=== PATIENT | female | born 1970 | race Two or more races ===

== ENCOUNTER → 2024-09-01 | Outpatient (CLI) | payer MEDICARE, MEDICAID, SELFPAY ==
--- NOTE | 2024-09-01 15:32 | XR_ITS ---
Examination: PA lateral chest 2 views TECHNIQUE: Upright PA lateral chest 2 views Date and time: September 01, 2024 1541 hours INDICATIONS: Positive PPD. FINDINGS: Normal heart size. No pneumonia. The osseous structures are demineralized IMPRESSION:: No active disease. No radiographic findings of tuberculosis
== END | disposition home or self-care (01) ==
PROVIDERS: PCP Registered Nurse Community Health; Referring Provider Nurse Practitioner Family; Visit Provider Nurse Practitioner Family
DX: R76.11 Nonspecific reaction to tuberculin skin test without active tuberculosis (principal)
CPT/HCPCS: 71046

== ENCOUNTER 2024-09-17 18:38 | Emergency (ER) | payer MEDICAID, SELFPAY ==
[2024-09-17] VITALS (9 sets, daily range): BP systolic 124–171; BP diastolic 80–105; PULSE 68–85; RESP 16–18; TEMP 36.6–37.1; O2SAT 95–100; BMI 31.2
--- NOTE | 2024-09-17 19:05 | PD.EDABDPN ---
ED Abdominal Pain RME/HPI General Chief Complaint: Abdominal Pain Stated complaint: ABDOMINAL PAIN Time seen by provider: 09/17/24 19:02 Arrival date/time: 09/17/24 18:38 Limitations: no limitations RME / HPI RME / HPI narrative: Dr. Wick's Main ED Evaluation: 54yo female with a history of DM, HTN, HLD presents to the ED for a chief complaint of sharp chest pain that radiates to her abdomen x today. She subsequently complains of left leg pain. She reports associated nausea. She denies any vomiting, fever, chills, cough, or any other associated symptoms. She denies any tobacco use. She denies any history of similar symptoms. Related Data Home Medications ?Medication ?Instructions ?Recorded ?Confirmed levothyroxine 75 mcg tablet 75 mcg PO DAILY ##0 04/11/12 07/19/20 (Levoxyl) metformin 500 mg tablet,extended 1,000 mg PO BID ##0 04/11/12 07/19/20 release 24 hr (Glucophage XR) mirtazapine 30 mg tablet 30 mg PO HS ##0 04/11/12 07/19/20 simvastatin 40 mg tablet 40 mg PO QPM ##0 04/11/12 07/19/20 canagliflozin 300 mg tablet 300 mg PO QDAY ##0 07/26/16 07/19/20 (Invokana) alprazolam 1 mg tablet 1 mg PO BID 07/19/20 07/19/20 conj estrogen-medroxyprogesterone 1 tab PO QDAY 07/19/20 07/19/20 0.625 mg-2.5 mg tablet (Prempro) gabapentin 100 mg capsule 200 mg PO HS 07/19/20 07/19/20 metoprolol succinate 25 mg 25 mg PO BID 07/19/20 07/19/20 tablet,extended release 24 hr paliperidone 9 mg tablet,extended 9 mg PO BID 07/19/20 07/19/20 release 24 hr (Invega) psyllium seed (with dextrose) oral See Rx Instructions .Route .COMPLEX 07/19/20 07/19/20 powder venlafaxine 150 mg 150 mg PO QDAY 07/19/20 07/19/20 capsule,extended release 24 hr vitamin B complex 2 cap PO QDAY 07/19/20 07/19/20 Previous Rx's ?Medication ?Instructions ?Recorded loratadine 10 mg tablet 10 mg PO QDAY PRN ALLERGY #0 tabs 07/24/20 Allergies Allergy/AdvReac Type Severity Reaction Status Date / Time aspirin Allergy Mild Itching Verified 11/12/20 14:52 Review of Systems Review of Systems Systems Reviewed: All systems reviewed, normal except as documented Past Medical History Past Medical History NEUROLOGIC: Negative Neurological Disorders or Seizures CARDIAC: Positive Cardiac Disorders, Cardiac Arrhythmia, Hypercholesterolemia and Hypertension; Negative Congestive Heart Failure RESPIRATORY: Negative Chronic Obstructive Pulmonary Disease (COPD) GASTROINTESTINAL: Positive Gastrointestinal Disorders, Irritable Bowel and Gastroesophageal Reflux Disease GENITOURINARY: Negative Genitourinary Disorders or Renal Disease MUSCULOSKELETAL: Positive Musculoskeletal Disorders and Degenerative Disk Disease ENDOCRINE: Positive Endocrine Disorders, Diabetes Mellitus Type 2 and Hypothyroidism; Negative Diabetes Mellitus Type 1 HEMATOLOGIC: Positive Anemia PSYCHO/SOCIAL: Positive Psychiatric Problems, Schizophrenia, Bipolar Disorder, Depression, Anxiety and Behavior Problems OTHER HISTORY: Positive Hospitalization, Developmental Delay and Falls; Negative Blood Transfusions, Anesthesia Reactions, MRSA, VRSA, Vancomycin-Resistant Enterococci or Cancer Surgical History SURGICAL: Negative Cardiac Surgery or Vasectomy Social History SMOKING STATUS: Unknown if ever smoked ED Exam General Limitations: Present no limitations General appearance: Present alert and in no apparent distress Head Head exam: Present atraumatic Eye Eye exam: Present normal appearance, PERRL and EOMI ENT ENT exam: Present normal exam, normal oropharynx and mucous membranes moist Neck Neck exam: Present normal inspection, full ROM and trachea midline Chest Chest inspection: Present normal inspection and symmetric chest wall rise Respiratory Respiratory exam: Present normal lung sounds bilaterally; Absent accessory muscle use Cardiovascular Cardiovascular exam: Present regular rate, normal rhythm and normal heart sounds Abdominal Exam Abdominal exam: Present soft and normal bowel sounds Extremities Exam Extremities exam: Present normal inspection, full ROM and other (no calf tenderness); Absent pedal edema Back Exam Back exam: Present normal inspection and full ROM Neurological Exam Neurological exam: Present alert, oriented X3 and CN II-XII intact Psychiatric Psychiatric exam: Present normal affect and normal mood Skin Skin exam: Present warm, dry, intact and normal color Course Quality Measures none Orders Category Date Time Status EKG (ED ONLY) *Do not use* NOW Care 09/17/24 20:07 Completed Insert IV NOW Care 09/17/24 20:10 Completed EKG (ED Only) Stat Exams 09/17/24 20:07 Draft US venous doppler LE LT Stat Exams 09/17/24 20:23 Completed XR chest 1V portable Stat Exams 09/17/24 20:10 Completed CBC Stat Lab 09/17/24 19:20 Completed CMP [Comprehensive Metabolic Panel] Stat Lab 09/17/24 19:20 Results D-Dimer Stat Lab 09/17/24 19:20 Completed Lipase Stat Lab 09/17/24 19:20 Results Magnesium Stat Lab 09/17/24 19:20 Results Partial Thromboplastin Time Stat Lab 09/17/24 19:20 Completed Prothrombin Time with INR Stat Lab 09/17/24 19:20 Completed Troponin I Stat Lab 09/17/24 19:20 Results Urinalysis, C/S if Indicated Stat Lab 09/17/24 19:34 Completed Famotidine Inj [Pepcid Inj] Med 09/17/24 20:07 Discontinued 20 mg IVP X1 ONE Ondansetron Inj [Zofran Inj] Med 09/17/24 20:07 Discontinued 4 mg IVP X1 ONE Sodium Chloride 0.9% 1000 ml [Ns] 1,000 ml Med 09/17/24 20:07 Discontinued IV 999 mls/hr Reevaluation(s) Reevaluation #1: Patient feels significantly better and is stable to be discharged home. Time: 23:47 Vital Signs Vital signs: Vital Signs Temperature 97.9 F 09/17/24 18:50 Pulse Rate 77 09/17/24 18:50 Respiratory Rate 17 09/17/24 18:50 Blood Pressure 162/94 H 09/17/24 18:50 Pulse Oximetry (%) 100 09/17/24 18:50 Oxygen Delivery Method Room Air 09/17/24 18:50 Abdominal Pain MDM MDM Narrative MDM Narrative:: Scribe Attestation: 09/17/24 Carye Sidhu am scribing for and in the presence of Dr. Wick. Patient data External records reviewed:: [facility] previous records (Per chart review, patient was seen here on 02/28/22 for COVID.) Clinical information provided by:: patient Social determinants that could affect healthcare access:: none Patient has the following chronic illnesses:: DM, HTN, HLD How is presenting disease/condition affected by chronic disease/condition?: uneffected by Evaluation data The following diagnostics were reviewed and interpreted by me:: lab results, radiology exam(s) and EKG tracing(s) Lab and/or radiology exams considered but not ordered:: none Interpretation Summary: WBC 12, CMP normal, Magnesium normal, Troponin normal, D-Dimer negative, UA unremarkable. EKG done at 2036, NSR, rate of 73, normal intervals, normal axis, no acute ST or T-wave changes, according to my interpretation. [place] [facility] Report Signed Patient: KALYAN GONZALEZ [facility]. Record#: [id number] Birthdate: 1970 Age/Sex: 54 / F Location: [facility] Attending Dr: Ordering Physician: Kalyan Devi MD Date of Service: 09/17/24 Procedure(s): XR chest 1V portable Accession Number(s): [id number] cc: Medina Anne; Russ Main MD; Kalyan Devi MD~ Examination: AP chest single view Technique one AP portable upright chest single view Date and time: September 17, 2024 2017 hours INDICATIONS: Stroke alert, chest pain and shortness of breath today. FINDINGS: Normal heart size. No aspiration pneumonia. No pulmonary edema. Moderate osteopenia IMPRESSION: No aspiration pneumonia. Dictated By: Russ Main MD Signed By: <Electronically signed by Russ Main MD in OV> 09/17/[id number] [place] [facility] Report Signed Patient: KALYAN GONZALEZ [facility]. Record#: [id number] Birthdate: 1970 Age/Sex: 54 / F Location: [facility] Attending Dr: Ordering Physician: Kalyan Devi MD Date of Service: 09/17/24 Procedure(s): US venous doppler LE LT Accession Number(s): [id number] cc: Medina Anne; Russ Main MD; Kalyan Devi MD~ Examination: Duplex scan of the lower extremity, unilateral left Date and time of exam: September 17, 2024 2041 hours INDICATIONS: Left leg pain today Technique: Duplex scan of the extremity veins using B-mode/grayscale imaging and Doppler spectral analysis and color flow Attention is directed to internal echogenicity, compression and augmentation involving these veins, color flow assessment, spectral analysis Findings: Major deep venous structures in the extremity demonstrate normal course and caliber. There is no evidence of deep vein thrombosis. Normal color flow and spectral analysis Impression: Negative for DVT.. Dictated By: Russ Main MD Signed By: <Electronically signed by Russ Main MD in OV> 09/17/24 2119 Medications / Prescriptions Medications or Prescriptions considered but not ordered:: none Medication administrations:: Medication Administration History Discontinued Medications Famotidine (Famotidine Inj 10 Mg/Ml Vial 2 Ml) 20 mg IVP X1 ONE Stop: 09/17/24 20:08 Last Admin: 09/17/24 20:27 Dose: 20 mg Documented By: DAISY Sodium Chloride (Ns) 1,000 mls @ 999 mls/hr IV .Q1H1M ONE Stop: 09/17/24 21:07 Last Infusion: 09/17/24 21:29 Dose: Infused Documented By: Admin: 09/17/24 20:28 Dose: 999 mls/hr Documented By: DAISY Ondansetron HCl (Ondansetron Inj 2 Mg/Ml Inj 2 Ml) 4 mg IVP X1 ONE; Protocol Stop: 09/17/24 20:08 Last Admin: 09/17/24 20:27 Dose: 4 mg Documented By: DAISY see above Consultations Consultation(s) initiated? (list below): No Diagnosis Differential diagnosis abdominal pain: constipation and other (gastritis, GERD, DVT, STEMI, NSTEMI) Most likely diagnosis given after review of the tests above:: see clinical impression below Admission Indicated Admission indicated?: not indicated Admission Request Was there a request for admission?: No Disposition Plan Disposition Plan: Discharge Discharge Attestation Discharge Attestation: The patient and all family members were given an opportunity to ask questions and understood the discharge instructions. Discharge instructions specifically effects, indications for sooner follow up or return to the emergency department, and the expected course of current diagnosis. Patient condition: Stable Discharge Plan Plan Patient Disposition: HOME (Self Care) Patient condition on transfer: Stable Prescriptions/Referrals Prescriptions/Med Rec: No Action simvastatin 40 MG tablet 40 mg PO QPM Qty: 0 levothyroxine [Levoxyl] 75 MCG tablet 75 mcg PO DAILY Qty: 0 mirtazapine 30 mg Tablet 30 mg PO HS Qty: 0 metformin [Glucophage XR] 500 MG tablet extended release 24 hr 1,000 mg PO BID Qty: 0 Invokana 300 MG tablet 300 mg PO QDAY Qty: 0 alprazolam 1 mg tablet 1 mg PO BID venlafaxine 150 mg capsule,extended release 24hr 150 mg PO QDAY gabapentin 100 mg Capsule 200 mg PO HS metoprolol succinate 25 mg Tablet Extended Release 24 Hr 25 mg PO BID Prempro 0.625-2.5 mg tablet 1 tab PO QDAY vitamin B complex Capsule 2 cap PO QDAY psyllium seed (with dextrose) Powder See Rx Instructions .ROUTE .COMPLEX Rx Instructions: as directed [place] physician. paliperidone [Invega] 9 mg tablet extended release 24hr 9 mg PO BID loratadine 10 mg Tablet 10 mg PO QDAY PRN (Reason: ALLERGY) Qty: 0 0RF Referrals: Medina Anne FNP [Primary Care Provider] - In 1 week Problem List Clinical Impression: Atypical chest pain Patient/Caregiver Discharge Instructions Education Materials: ED Chest Pain, Uncertain Cause Additional Instructions: Follow-up with your primary care in the next 3-5 days. Return to the ED if you have any vomiting, worsening abdominal pain, worsening chest pain, or any other concerns. Print Language: Thai Stand Alone Forms: Lily Award Info., Patient Portal Info Letter
[2024-09-17 19:28] LABS: Basophils # (Auto) 0.0 Thou/mm3 (0.0-0.2); Basophils % (Auto) 0 % (0-2.5); Eosinophils # (Auto) 0.1 Thou/mm3 (0.0-0.5); Eosinophils % (Auto) 1 % (0-10); Hematocrit 40.6 % (36.0-46.0); Hemoglobin 12.9 g/dL (12.0-16.0); Immature Granulocytes Auto 0.07 Thou/mm3 (0.00-0.00); Lymphocytes # (Auto) 2.9 Thou/mm3 (1.0-4.8); Lymphocytes % (Auto) 24 % (10-50); Mean Corpuscular HGB Conc 31.8 g/dl (31.0-37.0); Mean Corpuscular Hemoglobin 29.7 pg (25.0-35.0); Mean Corpuscular Volume 94 fL (80-100); Monocytes # (Auto) 0.8 Thou/mm3 (0.0-0.8); Monocytes % (Auto) 7 % (0-12); Neutrophils # (Auto) 8.1 Thou/mm3 (1.8-7.7); Neutrophils % (Auto) 67 % (37-80); Nucleated Red Blood Cell # 0.00 Thou/mm3 (0.00-0.00); Nucleated Red Blood Cell % 0 /100 WBC (0); Platelet Count 201 Thou/mm3 (140-440); RDW Standard Deviation 46.8 fL (36.4-46.3); Red Blood Count 4.34 Miln/mm3 (4.00-5.20); White Blood Count 12.0 Thou/mm3 (3.6-11.0)
[2024-09-17 19:44] LABS: Collection Type, Urine Clean Catch
[2024-09-17 19:49] LABS: Alanine Aminotransferase 14 U/L (10-49); Albumin, Serum 5.0 gm/dL (3.5-5.0); Albumin/Globulin Ratio 2.1 (1.2-2.2); Alkaline Phosphatase 72 U/L (46-116); Anion Gap 10 (7-16); Aspartate Amino Transferase < 8 U/L (0-34); BUN/Creatinine Ratio 14 Ratio (12-20); Bilirubin,Total 0.3 mg/dL (0.3-1.2); Blood Urea Nitrogen 10 mg/dL (9-23); Calcium 10.2 mg/dL (8.3-10.6); Calcium (Corrected) 10.2 mg/dL (8.5-10.1); Carbon Dioxide 25.9 mMol/L (20.0-31.0); Chloride 98 mMol/L (98-107); Creatinine (Component) 0.7 mg/dL (0.6-1.3); Estimated Creatinine Clearance 79.8 mL/min (>60); Globulin 2.4 gm/dL (2.3-3.5); Glucose 138 mg/dL (74-106); Osmolality,Calculated 269 (275-295); Potassium 3.7 mMol/L (3.4-5.1); Sodium 134 mMol/L (136-145); Total Protein 7.4 gm/dL (5.7-8.2); eGFR > 60 See Note
[2024-09-17 19:51] LABS: Bacteria,Urine Rare; Bilirubin,Urine Negative (Negative); Blood,Urine Negative (Negative); Clarity,Urine Clear (Clear/Hazy); Color,Urine Colorless (Lt Yel-Yel); Culture Indicated,Urine Not Indicated; Glucose, Urine 4+ (Negative); Ketones,Urine Negative (Negative); Leukocyte Esterase,Urine Positive (Negative); Nitrite,Urine Negative (Negative); PH,Urine 7.0 (5.0-7.0); Protein,Urine Negative (Neg - Trace); RBC,Urine < 1 /hpf (0-3); Specific Gravity,Urine 1.002 (1.001-1.035); Squamous Epithelial Cell,Urine < 1 /hpf (0-5); Urobilinogen,Urine Negative mg/dL (0.0-1.0); WBC,Urine 6 /hpf (0-5)
--- NOTE | 2024-09-17 19:57 | PC.NURSE ---
pt has career services manager at bedside. pt has been up x2 since arrival to void. pt drank more than usual water AGRONOMY ADVISOR trying to lower her BS..
--- NOTE | 2024-09-17 20:07 | EKG_ITS ---
[facility] Test Date: 2024-09-17 Pat Name: SILVIA GONZALEZ Department: Room: - Gender: Female [employer]er: : 1970 Requested By: Silvia Degroot Order Number: [id number] Reading MD: Silvia Degroot Measurements Intervals [place] Rate: 73 P: 45 DE: 137 QRS: 73 QRSD: 90 T: 57 QT: 369 QTc: 407 Interpretive Statements SINUS RHYTHM Compared to ECG 10/10/2017 18:03:13 No significant changes /store/S0/[id number]/ecg/[id number].pdf
--- NOTE | 2024-09-17 20:10 | XR_ITS ---
Examination: AP chest single view Technique one AP portable upright chest single view Date and time: September 17, 2024 2017 hours INDICATIONS: Stroke alert, chest pain and shortness of breath today. FINDINGS: Normal heart size. No aspiration pneumonia. No pulmonary edema. Moderate osteopenia IMPRESSION: No aspiration pneumonia.
--- NOTE | 2024-09-17 20:23 | XR_ITS ---
Examination: Duplex scan of the lower extremity, unilateral left Date and time of exam: September 17, 2024 2041 hours INDICATIONS: Left leg pain today Technique: Duplex scan of the extremity veins using B-mode/grayscale imaging and Doppler spectral analysis and color flow Attention is directed to internal echogenicity, compression and augmentation involving these veins, color flow assessment, spectral analysis Findings: Major deep venous structures in the extremity demonstrate normal course and caliber. There is no evidence of deep vein thrombosis. Normal color flow and spectral analysis Impression: Negative for DVT..
[2024-09-17 20:26] LABS: INR 1.0 (0.9-1.3); Partial Thromboplastin Time 26.6 Seconds (22.0-36.0); Prothrombin Time 10.9 Seconds (9.0-12.2)
[2024-09-17] MEDS: ONDANSETRON INJ 2 MG/ML INJ 2 ML 4 MG IVP (20:27)
[2024-09-17] MEDS: FAMOTIDINE INJ 10 MG/ML VIAL 2 ML 20 MG IVP (20:27)
[2024-09-17] MEDS: SODIUM CHLORIDE 0.9% 1000 ML 1,000 ML 999 ML IV (20:28)
[2024-09-17 20:34] LABS: Magnesium 2.0 mg/dL (1.6-2.6); Troponin I < 0.020 ng/mL (0.0-0.045)
[2024-09-17 22:06] LABS: D-Dimer < 250 ng/mL (<600)
[2024-09-18] VITALS: BP 110/66; PULSE 73; RESP 16; O2SAT 99
[2024-09-18 00:10] VITALS: BP 138/56; PULSE 80; RESP 16; TEMP 36.6; O2SAT 96
[2024-09-18 01:33] LABS: Lipase 32 U/L (12-53)
== END 2024-09-18 00:11 | disposition home or self-care (01) ==
PROVIDERS: Emergency Provider Emergency Medicine; PCP Registered Nurse Community Health
DX: R07.89 Other chest pain (principal); M79.605 Pain in left leg; R06.02 Shortness of breath; I10 Essential (primary) hypertension; E78.00 Pure hypercholesterolemia, unspecified
CPT/HCPCS: 36415; 71045; 80053; 80307; 81001; 83690; 83735; 84484; 85025; 85379; 85610; 85730; 93005; 93971; 96361; 96374; 96375; 99283; J2405; J3490; J7030

== ENCOUNTER 2024-12-30 16:05 | Emergency (ER) | payer MEDICARE, MEDICAID, SELFPAY ==
[2024-12-30 16:06] VITALS: BMI 27.8
[2024-12-30 16:18] VITALS: BP 130/85; PULSE 84; RESP 20; TEMP 36.6; O2SAT 97
--- NOTE | 2024-12-30 16:29 | PD.EDLOWEX ---
Lower Extremity Injury RME/HPI General Chief Complaint: Extremity Injury, Lower Stated Complaint: R LEG SWELLING S/P FALL X5 DAYS Time Seen by Provider: 12/30/24 16:28 Arrival date/time: 12/30/24 16:05 RME / HPI RME / HPI Narrative: 54-year-old female with a past medical history of hypertension, high cholesterol, left knee fracture remotely presents to the ER complaining of right leg pain after tripping on her shoe when she was not using her walker (which she typically uses most of the time due to her chronic balance issues) 5 days ago and subsequently landed on her right knee and lower leg was referred to the ER for an ultrasound to rule out a blood clot. Denies fever, numbness, tingling, weakness. Patient endorses that she has taken ibuprofen without an allergic reaction in the past. Related Data Home Medications ?Medication ?Instructions ?Recorded ?Confirmed levothyroxine 75 mcg tablet 75 mcg PO DAILY ##0 04/11/12 07/19/20 (Levoxyl) metformin 500 mg tablet,extended 1,000 mg PO BID ##0 04/11/12 07/19/20 release 24 hr (Glucophage XR) mirtazapine 30 mg tablet 30 mg PO HS ##0 04/11/12 07/19/20 simvastatin 40 mg tablet 40 mg PO QPM ##0 04/11/12 07/19/20 canagliflozin 300 mg tablet 300 mg PO QDAY ##0 07/26/16 07/19/20 (Invokana) alprazolam 1 mg tablet 1 mg PO BID 07/19/20 07/19/20 conj estrogen-medroxyprogesterone 1 tab PO QDAY 07/19/20 07/19/20 0.625 mg-2.5 mg tablet (Prempro) gabapentin 100 mg capsule 200 mg PO HS 07/19/20 07/19/20 metoprolol succinate 25 mg 25 mg PO BID 07/19/20 07/19/20 tablet,extended release 24 hr paliperidone 9 mg tablet,extended 9 mg PO BID 07/19/20 07/19/20 release 24 hr (Invega) psyllium seed (with dextrose) oral See Rx Instructions .Route .COMPLEX 07/19/20 07/19/20 powder venlafaxine 150 mg 150 mg PO QDAY 07/19/20 07/19/20 capsule,extended release 24 hr vitamin B complex 2 cap PO QDAY 07/19/20 07/19/20 Previous Rx's ?Medication ?Instructions ?Recorded loratadine 10 mg tablet 10 mg PO QDAY PRN ALLERGY #0 tabs 07/24/20 Allergies Allergy/AdvReac Type Severity Reaction Status Date / Time aspirin Allergy Mild Itching Verified 12/30/24 16:09 ED Exam Narrative Physical exam: Constitutional: Vital Signs Reviewed. Well appearing. No acute distress. Not toxic appearing. Head: Normocephalic, atraumatic. Eyes: Conjunctiva clear. ENT: Mucous membranes moist. Neck: Trachea midline. Normal range of motion. No nuchal rigidity. Respiratory: Normal effort. No respiratory distress or accessory muscle use. Neuro: Alert and oriented. Speech normal. No focal gross motor or sensory deficits observed. Skin: Warm, dry, normal color. Psych: Pleasant. Normal affect. Cooperative. Extremity: Left lower extremity with a well-healed scar noted to the left knee as well as nodular deformities which are chronic in nature for the patient Positive tenderness to palpation, edema, ecchymosis to right lower leg just distal to the knee as well as to the medial joint line and proximal calf. Positive mild limited range of motion and strength 4+ out of 5 secondary to pain range of motion is from 20-100 degrees which is painless compartments remain soft. No erythema, heat, pallor, poikilothermia. Dorsalis pedis pulse 2+ regular rate and rhythm for right lower leg. Able to dorsiflex and plantar flex ankle without difficulty and without worsening pain. Course Quality Measures none Orders Category Date Time Status Apply knee immobilizer NOW Care 12/30/24 19:11 Active US venous duplex LE RT Stat Exams 12/30/24 16:35 Completed XR knee RT 3V Stat Exams 12/30/24 16:35 Completed XR tibia fibula RT 2V Stat Exams 12/30/24 16:35 Completed Ketorolac Inj [Toradol Inj] Med 12/30/24 16:36 Discontinued 15 mg IM X1 ONE Vital Signs Vital signs: Vital Signs Temperature 97.9 F 12/30/24 16:18 Pulse Rate 84 12/30/24 16:18 Respiratory Rate 20 12/30/24 16:18 Blood Pressure 130/85 H 12/30/24 16:18 Pulse Oximetry (%) 97 12/30/24 16:18 Oxygen Delivery Method Room Air 12/30/24 16:18 Extremity Injury, Lower MDM Narrative MDM Narrative:: MDM: This patient has been diagnosed with a knee effusion with concern for internal knee derangements i.e. strain vs sprain vs occult f/x or dislocation that does not have neurovascular compromise. X-ray without gross fracture or dislocation. Ultrasound without DVT. There is no infectious e/o. Patient instructions include the recommendation to decrease activities, be weight bearing as tolerated, and to ice and elevate the injured limb. Plan for knee immobilizer, continue using walker as previously. The patient is instructed to return if there are signs of a compartment syndrome or vascular compromise, including increased pain or numbness. Extremity remains DNVI with soft compartments at time of discharge. Patient data External records reviewed:: None Clinical information provided by:: patient and guardian Social determinants that could affect healthcare access:: none Patient has the following chronic illnesses:: As noted How is presenting disease/condition affected by chronic disease/condition?: uneffected by Evaluation data The following diagnostics were reviewed and interpreted by me:: other (specify) Lab and/or radiology exams considered but not ordered:: Additional Labs and radiology considered, but not ordered as they were not clinically indicated at this time. Interpretation Summary: Knee effusion Medications / Prescriptions Medications or Prescriptions considered but not ordered:: I considered prescription management (both outpatient prescriptions AND drug treatment in the ER) and decided that this was necessary and was prescribed as charted. Medication administrations:: Medication Administration History Discontinued Medications Ketorolac Tromethamine (Ketorolac Inj 30 Mg/Ml Vial) 15 mg IM X1 ONE Stop: 12/30/24 16:37 Last Admin: 12/30/24 17:37 Dose: 15 mg Documented By: GM As noted Consultations Consultation(s) initiated? (list below): No Diagnosis Extremity Injury, Lower Differential Diagnosis: acute internal derangement of knee Most likely diagnosis given after review of the tests above:: Internal derangement of knee Admission Indicated Admission indicated?: not indicated Explain why admission is indicated or not indicated:: Escalation of care including admission/observation considered but I decided to discharge because based on the overall clinical presentation, and after consideration of the patient's course in the emergency department and plan for outpatient management, I believe that neither further observation nor inpatient care is required at this time. Admission Request Was there a request for admission?: No Disposition Plan Disposition Plan: Discharge Discharge Attestation Discharge Attestation: The patient and all family members were given an opportunity to ask questions and understood the discharge instructions. Discharge instructions specifically effects, indications for sooner follow up or return to the emergency department, and the expected course of current diagnosis. Patient condition: Stable Discharge Plan Plan Patient Disposition: HOME (Self Care) Patient condition on transfer: Stable Prescriptions/Referrals Prescriptions/Med Rec: No Action simvastatin 40 MG tablet 40 mg PO QPM Qty: 0 levothyroxine [Levoxyl] 75 MCG tablet 75 mcg PO DAILY Qty: 0 mirtazapine 30 mg Tablet 30 mg PO HS Qty: 0 metformin [Glucophage XR] 500 MG tablet extended release 24 hr 1,000 mg PO BID Qty: 0 Invokana 300 MG tablet 300 mg PO QDAY Qty: 0 alprazolam 1 mg tablet 1 mg PO BID venlafaxine 150 mg capsule,extended release 24hr 150 mg PO QDAY gabapentin 100 mg Capsule 200 mg PO HS metoprolol succinate 25 mg Tablet Extended Release 24 Hr 25 mg PO BID Prempro 0.625-2.5 mg tablet 1 tab PO QDAY vitamin B complex Capsule 2 cap PO QDAY psyllium seed (with dextrose) Powder See Rx Instructions .ROUTE .COMPLEX Rx Instructions: as directed [place] physician. paliperidone [Invega] 9 mg tablet extended release 24hr 9 mg PO BID loratadine 10 mg Tablet 10 mg PO QDAY PRN (Reason: ALLERGY) Qty: 0 0RF Referrals: Medina Anne FNP [Primary Care Provider] - In 1 week Problem List Clinical Impression: Acute internal derangement of knee Patient/Caregiver Discharge Instructions Discharge Activity: walk with walker only and activity as tolerated Education Materials: How Your Knee Works Additional Instructions: Follow up with your primary medical doctor and an orthopedic doctor within 24 hours. Return to the Emergency Room immediately for any new, worsening, continuing symptoms or any concerns at all. Return to the Emergency Room within 24 hours if you are unable to follow up with your primary medical doctor and an orthopedic doctor within 24 hours. Print Language: Paraguayan Stand Alone Forms: Lily Award Info., Patient Portal Info Letter YUMIKO/ANAMARIA Supervising Physician YUMIKO/ANAMARIA Supervising Physician: Dr. Reyes
--- NOTE | 2024-12-30 16:35 | XR_ITS ---
Examination: Tibia-Fibula, right, 2 views Technique: Tibia-fibula AP lateral 2 views Date and time of exam: December 30, 2024, 1642 hours INDICATIONS: Patient fell today with injury to the lower leg, lower leg pain. FINDINGS: No acute fracture No dislocation. No foreign body. Significant plantar posterior bony calcaneal spurs IMPRESSION: No acute fracture Repeat the study short-term as clinically warranted
--- NOTE | 2024-12-30 16:35 | XR_ITS ---
Examination: Knee, right, 3 views Technique: Knee AP, lateral, oblique 3 views Date and time of exam: December 30, 2024, 1646 hours INDICATIONS: Patient fell today with into the leg, leg pain FINDINGS: No acute fracture Moderate knee effusion No cortical bone destruction IMPRESSION: No acute fracture
--- NOTE | 2024-12-30 16:35 | XR_ITS ---
Examination: Duplex scan of the lower extremity, unilateral right complete Date and time of exam: December 30, 2024, 1743 hours INDICATIONS: Right leg swelling and pain beginning 5 days ago Technique: Duplex scan of the extremity veins using B-mode/grayscale imaging and Doppler spectral analysis and color flow Attention is directed to internal echogenicity, compression and augmentation involving these veins, color flow assessment, spectral analysis Findings: Major deep venous structures in the extremity demonstrate normal course and caliber. There is no evidence of deep vein thrombosis. Normal color flow and spectral analysis Impression: Negative for DVT..
[2024-12-30] MEDS: KETOROLAC INJ 30 MG/ML VIAL 15 MG IM (17:37)
== END 2024-12-30 21:34 | disposition home or self-care (01) ==
PROVIDERS: Emergency Provider Emergency Medicine; PCP Registered Nurse Community Health
DX: M23.91 Unspecified internal derangement of right knee (principal); I10 Essential (primary) hypertension
CPT/HCPCS: 73562; 73590; 93971; 96372; 99283; J1885

== ENCOUNTER → 2025-01-04 | Outpatient (CLI) | payer MEDICARE, MEDICAID, SELFPAY ==
--- NOTE | 2025-01-04 14:45 | XR_ITS ---
Examination: Screening digital mammography, bilateral Computer aided detection 3-D breast Tomosynthesis, bilateral Date and time of exam: January 04, 2025, 1432 hours, compared to mammograms dating to December 05, 2016 Indication: Screening Technique: Nonmagnified MLO, CC views of the breasts to been obtained, reconstructed from 3-D Tomosynthesis images. R2 computer aided detection program utilized for evaluation of suspicious masses and/or abnormal calcifications. 3-D Tomosynthesis images obtained. Findings: Scattered areas of fibroglandular density. Benign calcifications. No interval suspicious masses Impression: BI-RADS category II: Benign Findings. Recommend 1 year follow-up mammogram.
== END | disposition home or self-care (01) ==
LOC: CDIM 14:25
PROVIDERS: Referring Provider Registered Nurse Community Health; Visit Provider Registered Nurse Community Health
DX: Z12.31 Encounter for screening mammogram for malignant neoplasm of breast (principal); R92.323 Mammographic fibroglandular density, bilateral breasts; R92.1 Mammographic calcification found on diagnostic imaging of breast
CPT/HCPCS: 77063; 77067

== ENCOUNTER → 2025-01-06 | Outpatient (CLI) | payer MEDICARE, MEDICAID, SELFPAY ==
--- NOTE | 2025-01-06 15:30 | XR_ITS ---
Examination: Knee, right, 3 views Technique: Knee AP, lateral, oblique 3 views Date and time of exam: January 06, 2025, 1742 hours INDICATIONS: Patient fell December 2024 with injury to the knee, knee pain. FINDINGS: Severe osteopenia Probable normal anterior tibial tubercle but clinical correlation advised Small knee effusion IMPRESSION: Probable normal anterior tibial tubercle but if there are pain symptoms involving the proximal tibia, recommend CT knee without contrast
== END | disposition home or self-care (01) ==
LOC: SDIM 15:18
PROVIDERS: PCP Registered Nurse Community Health; Referring Provider Registered Nurse Community Health; Visit Provider Registered Nurse Community Health
DX: S89.91XA Unspecified injury of right lower leg, initial encounter (principal); W19.XXXA Unspecified fall, initial encounter
CPT/HCPCS: 73562